=== PATIENT | female | born 1960 | race Caucasian/White ===

== ENCOUNTER 2019-06-13 17:08 | Observation (INO) ==
[2019-06-13 17:58] LABS: Hematocrit 34.7 % (36.0-48.0); Hemoglobin 11.6 g/dL (12.0-15.0); Mean Cell Volume 87.9 fL (80.0-100.0); Mean Corpuscular HGB Conc 33.3 g/dL (31.0-36.0); Mean Platelet Volume 8.7 fL (7.4-10.4); Platelet Count 311 K/mcL (140-440); RBC 3.95 M/mcL (4.00-5.20); Red Cell Distribution Width 14.6 % (11.5-14.5); WBC 6.5 K/mcL (4.5-11.0)
[2019-06-13 18:21] LABS: ALT/SGPT 22 U/l (0-40); AST/SGOT 22 U/l (0-37); Albumin 4.1 gm/dL (3.2-5.2); Alkaline Phosphatase 71 U/L (39-117); Bilirubin,Total 0.6 mg/dL (0.0-1.0); Blood Urea Nitrogen 19 mg/dl (6-20); Calcium 9.4 mg/dl (8.6-10.4); Carbon Dioxide 23 mmol/L (22-30); Chloride 95 mmol/L (96-108); Glomerular Filtration Rate 31; Glucose 149 mg/dL (70-105)
[2019-06-13 18:27] LABS: Eosinophils % (Manual) 1 % (0-7); Lymphocytes % 35 % (15-49); Monocytes % (Manual) 11 % (1-12); Platelet Estimate NORMAL (NORMAL); RBC Morphology NORMAL (NORMAL); Segmented Neutrophils % 53 % (38-78)
[2019-06-13] MEDS ORDERED: 0.9 % SODIUM CHLORIDE 1,000 ML IV ONE (19:21)
--- NOTE | 2019-06-13 19:39 | XRay Report ---
CLINICAL INFORMATION: Hypoxia COMPARISON: 05/31/2019 FINDINGS: Heart size, mediastinum and pulmonary vessels are normal. Lungs are clear. No effusions. IMPRESSION: Negative Interpreted and Authenticated by: Matthew Wang 06/13/19
--- NOTE | 2019-06-13 20:23 | Emergency Department Note ---
Weakness HPI - General Chief complaint: Weakness Stated complaint: Weakness, Nausea, Vomiting, Dizziness Time Seen by Provider: 06/13/19 17:25 Source: patient Mode of arrival: ambulatory Limitations: no limitations - History of Present Illness HPI Narrative: This 59-year-old female comes emergency room just not feeling normal with persisting weakness. She recently on 24 May was sent at [facility] with sepsis and EKG changes. She ended up with a myocardial infarction in the anteroseptal area and had 2 stents placed on the . She was sent home a number of days later on cefuroxime for her sepsis/pyelonephritis. On the she came back to this emergency room not quite feeling well and as if she had some persisting symptoms with weakness and nausea, etc. She was instructed to continue with her cefuroxime as the bacteria that grew out from the , E. coli, was sensitive to multiple antibiotics. Patient finished her antibiotic and several days later was seen in primary care or urgent care and was found to have a bladder infection for which she was treated with Bactrim. This began 6 days ago. She is here because she does not necessarily feel well with some nausea and vomiting including one episode yesterday 1 or 2 during the night and 2 times today. No diarrhea. She is felt dizzy for a couple of days as well as worsening weakness. She is felt cold all the time but no sweatiness. No fevers that she is aware of. Some general body achiness. REVIEW OF SYSTEMS: Denies runny nose, sore throat Denies chest pain Has a small little cough and some mild shortness of breath. Denies diarrhea. Denies dysuria presently. She did have some previously as well as did have some hesitancy and dribbling. She has had decreased urine output although she believes she has drank fairly normally. Has some back pain that she is not certain where it is coming from but it seems to have started in this last 1 week and wondering if it could be from her kidneys/UTI. No rashes. Headache yesterday. Some lightheaded and dizziness yesterday and some today. Has some chronic anxiety for which she is on medication I believe. Denies depression. - Related Data Home Medications Medication Instructions Recorded Confirmed Aripiprazole [Abilify] 5 mg PO DAILY 05/24/19 06/14/19 Escitalopram [Lexapro] 20 mg PO DAILY 05/24/19 06/14/19 Hydrochlorothiazide [Oretic] 25 mg PO DAILY 05/24/19 06/14/19 Metoprolol Succinate [Toprol Xl] 100 mg PO DAILY 05/24/19 06/14/19 Rosuvastatin [Crestor] 5 mg PO DAILY 05/24/19 06/14/19 metFORMIN HCL [Metformin HCl] 1,000 mg PO BIDCC 05/24/19 06/14/19 aspirin 81 mg tablet,delayed 81 mg PO QDAY 06/13/19 06/14/19 release atorvastatin 40 mg tablet 40 mg PO QHS #30 tab 06/13/19 06/14/19 lisinopril 5 mg tablet 5 mg PO QHS #30 tab 06/13/19 06/14/19 ondansetron 4 mg disintegrating 4 mg PO Q4-6HP PRN 06/13/19 06/14/19 tablet ticagrelor 90 mg tablet 90 mg PO BID 06/13/19 06/14/19 Allergies Allergy/AdvReac Type Severity Reaction Status Date / Time Penicillins Allergy Intermediate Rash Verified 06/13/19 16:40 Past Medical History - Past Medical History [facility] Narrative: Medical History (Last Updated 06/13/19 @ 20:42 by Jony Viramontes DO) Diabetes mellitus type 2, uncontrolled, with complications (Chronic) History of myocardial infarction (Chronic) Elevated LFTs (Resolved) Sepsis (Resolved) Pyelonephritis (Resolved) Chest pain (Resolved) Hypokalemia (Resolved) Pancreatitis (Resolved) Past Surgical History (Last Updated 06/13/19 @ 20:43 by Jony Viramontes DO) History of (Acute) History of D&C (Acute) History of foot surgery (Acute) History of knee surgery (Acute) History of shoulder surgery (Acute) Medical history: Reports: CAD (coronary artery disease), DM, hyperlipidemia, hypertension, thyroid disease. Denies: cancer, CVA, myocardial infarction, seizures, TIA Psychiatric history: Reports: anxiety Surgical history ED: Reports: angioplasty/stent - Social History smoking status: Never smoker Alcohol use: Reports: None Physical Exam Limitations: no limitations General appearance: alert, in no apparent distress, malaise Head: atraumatic, normocephalic Eye: Present: normal appearance, PERRL, EOMI. Absent: scleral icterus, conjunctival injection ENT: Present: normal oropharynx, mucous membranes moist Neck: Present: trachea midline. Absent: lymphadenopathy, thyromegaly Chest: Present: symmetric chest wall rise Respiratory: Present: normal lung sounds bilaterally. Absent: respiratory distress, wheezes, stridor, accessory muscle use, prolonged expiratory phase Cardiovascular: Present: regular rate, normal rhythm. Absent: systolic murmur, diastolic murmur Abdominal: Present: soft. Absent: distention, tenderness, guarding, rebound, rigidity, organomegaly, mass Extremities: Absent: pedal edema, pretibial edema, calf tenderness Back: Absent: CVA tenderness (R), CVA tenderness (L) Neurological: Present: alert, oriented X3 Psychiatric: Present: normal affect, normal mood, serious. Absent: poor eye contact Skin: Present: warm, dry Course Vital Signs Temperature 98.1 F 06/13/19 17:08 Pulse Rate 80 06/13/19 17:08 Respiratory Rate 18 06/13/19 17:08 Blood Pressure 99/62 06/13/19 17:08 Pulse Oximetry (%) 97 06/13/19 17:08 Temperature 98.8 F 06/14/19 00:06 Pulse Rate 84 06/14/19 00:06 Respiratory Rate 14 06/14/19 00:06 Blood Pressure 113/72 06/14/19 00:06 Pulse Oximetry (%) 98 06/14/19 00:06 Weakness - MDM Narrative Medical decision making narrative: 5:53 PM -- low blood pressure in spite of metoprolol change from 200 down to 100 mg/day 6 days ago. Possibly caused by nausea and vomiting times third day today. Associated with some dizziness. Recent sepsis and myocardial infarction. Multiple labs to be done including cardiac and lactic acid. Initial EKG suggests atrial flutter. Rate around 80. 6:45 PM approximately -- appears to be sinus rhythm on the monitor. Repeat EKG demonstrates sinus rhythm. More in-depth comparison between the 2 reveals that the original EKG was actually sinus not 41 AV block atrial flutter. Labs revealed creatinine of 1.8. UA still pending. 7:19 PM - saturations sometimes dipping to 87%. Will get 2 view x-ray of the chest and procalcitonin. CT scan of the abdomen was negative for stones. The inflammatory reaction around 1 of her kidneys has resolved. A bladder scan demonstrates around 100 cc of fluid. 9 PM approximately -- I spoke with Dr. Cervantes, hospitalist, with consideration of seeking out what her creatinine was after her heart cath and at discharge. Also a bladder scan. Consider discussing with nephrology if this could be a part of a contrast-induced nephropathy. CT scan was recommended requested but had already been done as above. 10:20 PM -- creatinine on the (while at [facility]) was 1.1. 10:30 PM approximately -- saturations on review seem to indicate that she is not hypoxic and ambulates easily and well on room air with normal saturations. Previous lipase had been elevated at 245 on 24 May. Today is 99. Procalcitonin is also unremarkable as is the chest x-ray. 11:35 PM -- after second liter of fluid patient feels quite a bit better but still felt dizzy on the way back from the bathroom. I had spoken with Dr. Cervantes a few minutes ago with agreement for patient to be admitted to observation under his hospital service because of her creatinine of 1.8 and the hypotension that she had exhibited. Patient indicates that her nausea and vomiting seems to have improved quite significantly. She is now attempting to drink some additional fluids. - Lab Data Lab results reviewed: Yes I reviewed the patient's lab results. Result diagrams: 06/13/19 17:34 06/13/19 17:34 Lab Results 06/13/19 06/13/19 06/13/19 Range/Units 17:34 17:34 17:34 WBC 6.5 (4.5-11.0) K/mcL RBC 3.95 L (4.00-5.20) M/mcL Hgb 11.6 L (12.0-15.0) g/dL Hct 34.7 L (36.0-48.0) % MCV 87.9 (80.0-100.0) fL MCH 29.2 (26.0-34.0) pg MCHC 33.3 (31.0-36.0) g/dL RDW 14.6 H (11.5-14.5) % Plt Count 311 (140-440) K/mcL MPV 8.7 (7.4-10.4) fL Total Counted 100 Seg Neutrophils % 53 (38-78) % Band Neutrophils % Not Reportable Lymphocytes % 35 (15-49) % Monocytes % (Manual) 11 (1-12) % Eosinophils % (Manual) 1 (0-7) % Platelet Estimate Normal (NORMAL) RBC Morphology Normal (NORMAL) VBG Lactic Acid 1.6 (0.5-2.0) mmol/L Sodium 136 (133-145) mmol/L Potassium 4.1 (3.3-5.1) mmol/L Chloride 95 L (96-108) mmol/L Carbon Dioxide 23 (22-30) mmol/L Anion Gap 18.0 H (8-16) BUN 19 (6-20) mg/dl Creatinine 1.8 H (0.6-1.1) mg/dl GFR Calculation 31 Glucose 149 H (70-105) mg/dL Calcium 9.4 (8.6-10.4) mg/dl Total Bilirubin 0.6 (0.0-1.0) mg/dL AST 22 (0-37) U/l ALT 22 (0-40) U/l Alkaline Phosphatase 71 (39-117) U/L Troponin T (0-0.03) ng/ml Total Protein 8.1 (5.9-8.4) gm/dL Albumin 4.1 (3.2-5.2) gm/dL Globulin 4.0 H (2.2-3.7) gm/dL Albumin/Globulin Ratio 1.0 (1.0-2.3) Lipase (7-60) U/L Procalcitonin (<0.10) ng/mL Urine Color Urine Appearance Urine pH (5.0-9.0) Ur Specific [place] (1.000-1.035) Urine Protein (NEG) mg/dL Urine Glucose (UA) (NEG) mg/dL Urine Ketones (NEG) mg/dL Urine Occult Blood (<0.03) mg/dL Urine Nitrate (NEG) Urine Bilirubin (NEG) mg/dL Urine Urobilinogen (NEG) mg/dL Ur Leukocyte Esterase (NEG) /uL Urine RBC (0-1) /hpf Urine WBC (0-4) /hpf Ur Squamous Epith Cells (0-4) /hpf Urine Bacteria (0) /hpf Hyaline Casts (0-2) /lpf Urine Mucus (0) /hpf Ur Culture Indicated? 0906/13/19 06/13/19 Range/Units 17:34 17:34 17:34 WBC (4.5-11.0) K/mcL RBC (4.00-5.20) M/mcL Hgb (12.0-15.0) g/dL Hct (36.0-48.0) % MCV (80.0-100.0) fL MCH (26.0-34.0) pg MCHC (31.0-36.0) g/dL RDW (11.5-14.5) % Plt Count (140-440) K/mcL MPV (7.4-10.4) fL Total Counted Seg Neutrophils % (38-78) % Band Neutrophils % Lymphocytes % (15-49) % Monocytes % (Manual) (1-12) % Eosinophils % (Manual) (0-7) % Platelet Estimate (NORMAL) RBC Morphology (NORMAL) VBG Lactic Acid (0.5-2.0) mmol/L Sodium (133-145) mmol/L Potassium (3.3-5.1) mmol/L Chloride (96-108) mmol/L Carbon Dioxide (22-30) mmol/L Anion Gap (8-16) BUN (6-20) mg/dl Creatinine (0.6-1.1) mg/dl GFR Calculation Glucose (70-105) mg/dL Calcium (8.6-10.4) mg/dl Total Bilirubin (0.0-1.0) mg/dL AST (0-37) U/l ALT (0-40) U/l Alkaline Phosphatase (39-117) U/L Troponin T < 0.01 (0-0.03) ng/ml Total Protein (5.9-8.4) gm/dL Albumin (3.2-5.2) gm/dL Globulin (2.2-3.7) gm/dL Albumin/Globulin Ratio (1.0-2.3) Lipase 99 H (7-60) U/L Procalcitonin < 0.10 (<0.10) ng/mL Urine Color Urine Appearance Urine pH (5.0-9.0) Ur Specific [place] (1.000-1.035) Urine Protein (NEG) mg/dL Urine Glucose (UA) (NEG) mg/dL Urine Ketones (NEG) mg/dL Urine Occult Blood (<0.03) mg/dL Urine Nitrate (NEG) Urine Bilirubin (NEG) mg/dL Urine Urobilinogen (NEG) mg/dL Ur Leukocyte Esterase (NEG) /uL Urine RBC (0-1) /hpf Urine WBC (0-4) /hpf Ur Squamous Epith Cells (0-4) /hpf Urine Bacteria (0) /hpf Hyaline Casts (0-2) /lpf Urine Mucus (0) /hpf Ur Culture Indicated? 06/13/19 Range/Units 20:59 WBC (4.5-11.0) K/mcL RBC (4.00-5.20) M/mcL Hgb (12.0-15.0) g/dL Hct (36.0-48.0) % MCV (80.0-100.0) fL MCH (26.0-34.0) pg MCHC (31.0-36.0) g/dL RDW (11.5-14.5) % Plt Count (140-440) K/mcL MPV (7.4-10.4) fL Total Counted Seg Neutrophils % (38-78) % Band Neutrophils % Lymphocytes % (15-49) % Monocytes % (Manual) (1-12) % Eosinophils % (Manual) (0-7) % Platelet Estimate (NORMAL) RBC Morphology (NORMAL) VBG Lactic Acid (0.5-2.0) mmol/L Sodium (133-145) mmol/L Potassium (3.3-5.1) mmol/L Chloride (96-108) mmol/L Carbon Dioxide (22-30) mmol/L Anion Gap (8-16) BUN (6-20) mg/dl Creatinine (0.6-1.1) mg/dl GFR Calculation Glucose (70-105) mg/dL Calcium (8.6-10.4) mg/dl Total Bilirubin (0.0-1.0) mg/dL AST (0-37) U/l ALT (0-40) U/l Alkaline Phosphatase (39-117) U/L Troponin T (0-0.03) ng/ml Total Protein (5.9-8.4) gm/dL Albumin (3.2-5.2) gm/dL Globulin (2.2-3.7) gm/dL Albumin/Globulin Ratio (1.0-2.3) Lipase (7-60) U/L Procalcitonin (<0.10) ng/mL Urine Color Yellow Urine Appearance Clear Urine pH 5.0 (5.0-9.0) Ur Specific [place] 1.012 (1.000-1.035) Urine Protein Neg (NEG) mg/dL Urine Glucose (UA) Negative (NEG) mg/dL Urine Ketones Neg (NEG) mg/dL Urine Occult Blood Neg (<0.03) mg/dL Urine Nitrate Neg (NEG) Urine Bilirubin Neg (NEG) mg/dL Urine Urobilinogen Neg (NEG) mg/dL Ur Leukocyte Esterase 25 A (NEG) /uL Urine RBC < 1 (0-1) /hpf Urine WBC 19 H (0-4) /hpf Ur Squamous Epith Cells < 1 (0-4) /hpf Urine Bacteria 0 (0) /hpf Hyaline Casts 17 H (0-2) /lpf Urine Mucus Few (0) /hpf Ur Culture Indicated? Yes - Radiology Data Radiology results reviewed: Yes I reviewed the patient's radiology results. - EKG Data EKG attestation: Yes There are no EKG findings of acute coronary syndrome, Yes This EKG will be read by chief sales officer EKG results narrative: Initial EKG demonstrates anteroseptal infarct with inverted T waves in the anterior leads but no ST depression or elevation. She was thought to be in atrial flutter with a 4:1 AV block and an incomplete right bundle branch block; closer look at her EKG questions this finding. Within a few minutes sinus rhythm and this was captured on a follow-up EKG. Disposition Pt seen by HYSTER DRIVER/PA only: No Clinical Impression: Hypoxia, Atrial flutter, paroxysmal ARF (acute renal failure) Qualifiers: Acute renal failure type: unspecified Qualified Code(s): N17.9 - Acute kidney failure, unspecified Hypotension Qualifiers: Hypotension type: hypotension due to drug Qualified Code(s): I95.2 - Hypotension due to drugs UTI (urinary tract infection) Qualifiers: Urinary tract infection type: site unspecified Hematuria presence: without hematuria Qualified Code(s): N39.0 - Urinary tract infection, site not specified Disposition: Xfer As Outpt/Obs ([facility]) Condition: Fair
[2019-06-13 22:36] LABS: Appearance,Urine CLEAR; Bacteria,Urine 0 /hpf (0); Bilirubin,Urine NEG (NEG); Color,Urine YELLOW; Culture Indicated,Urine YES; Glucose,Urine (UA) NEGATIVE (NEG); Ketones,Urine NEG (NEG); Leukocyte Esterase,Urine 25 /uL (NEG); Mucus,Urine FEW /hpf (0); Nitrate,Urine NEG (NEG); Protein,Urine NEG (NEG); Specific Gravity,Urine 1.012 (1.000-1.035); Urine Blood NEG mg/dL (<0.03); Urine Hyaline Cast 17 /lpf (0-2); Urine RBC < 1 /hpf (0-1); Urine Squamous Epithelial Cell < 1 /hpf (0-4); Urine WBC 19 /hpf (0-4); Urobilinogen,Urine NEG (NEG)
--- NOTE | 2019-06-13 23:25 | Internal Med History&Physical ---
Medical - H&P: HPI Patient information: Note initiated : 06/13/19 at 11:24 pm Service Date, if different from initiated Date: [] Patient: Harriet English a 59 y/o F admitted on for Weakness, Nausea, Vomiting, Dizziness. Chief Complaint: [] Chief complaint: + History of present illness: Ms. English is a 59 year old F with a history of diabetes/coronary artery disease status post stenting 2 weeks ago at [facility]. Patient has been diagnosed with pyelonephritis and was under treatment on antibiotics. She was treated for sepsis and had a 5-day hospitalization at [facility] 2 weeks ago. Post discharge she was continued on antibiotics but has had developed progressive fatigue malaise nausea and never really felt good. Over the last couple of days she has gotten increasingly dizzy lightheaded, loss of appetite but denies fever shaking chills, dysuria, bloody urine or stool. She further denies chest pain/shortness of breath. She subsequently presents to the ER for evaluation. Initial work-up was consistent with hypotension/creatinine 1.8. Her last known creatinine was 1.1 on the day of discharge from [facility] around mid May. At the time of evaluation patient is alert and oriented. She denies active distress but feels fatigued lethargic. She denies vertigo but endorses some lightheadedness while ambulating. She denies changes in medication except for metoprolol and ticagrelor that was started post coronary stenting. Review of systems 10 point review of system was performed and is negativ except as above Medical - H&P: PMH Medical history: Diabetes mellitus type 2, uncontrolled, with complications (Chronic) History of myocardial infarction (Chronic) Elevated LFTs (Resolved) Sepsis (Resolved) Pyelonephritis (Resolved) Chest pain (Resolved) Hypokalemia (Resolved) Pancreatitis (Resolved) CAD status post stenting May 2019 Pyelonephritis May 2019 Past Surgical History History of (Acute) History of D&C (Acute) History of foot surgery (Acute) History of knee surgery (Acute) History of shoulder surgery (Acute) Coronary stenting 2018 Psychiatric history: Reports: anxiety Surgical history ED: Reports: angioplasty/stent - Social History smoking status: Never smoker Alcohol use: Reports: None Medical - H&P: Meds Home Medications Medication Instructions Recorded Confirmed Type Aripiprazole [Abilify] 5 mg PO DAILY 05/24/19 06/14/19 History Escitalopram [Lexapro] 20 mg PO DAILY 05/24/19 06/14/19 History Hydrochlorothiazide [Oretic] 25 mg PO DAILY 05/24/19 06/14/19 History Metoprolol Succinate [Toprol Xl] 100 mg PO DAILY 05/24/19 06/14/19 History Rosuvastatin [Crestor] 5 mg PO DAILY 05/24/19 06/14/19 History metFORMIN HCL [Metformin HCl] 1,000 mg PO BIDCC 05/24/19 06/14/19 History aspirin 81 mg tablet,delayed 81 mg PO QDAY 06/13/19 06/14/19 History release atorvastatin 40 mg tablet 40 mg PO QHS #30 tab 06/13/19 06/14/19 History lisinopril 5 mg tablet 5 mg PO QHS #30 tab 06/13/19 06/14/19 History ondansetron 4 mg disintegrating 4 mg PO Q4-6HP PRN 06/13/19 06/14/19 History tablet ticagrelor 90 mg tablet 90 mg PO BID 06/13/19 06/14/19 History Allergies Allergy/AdvReac Type Severity Reaction Status Date / Time Penicillins Allergy Intermediate Rash Verified 06/13/19 16:40 Medical - H&P: Exam - Constitutional Vitals: Temp Pulse Resp BP Pulse Ox 98.1 F 82 25 H 124/66 93 06/13/19 17:08 06/13/19 22:36 06/13/19 22:36 06/13/19 22:31 06/13/19 22:36 General appearance: average body habitus, no acute distress Exam: Alert and oriented Eye movement symmetrical Head normocephalic Oral cavity dry no ear nose discharge Neck no lymphadenopathy S1-S2 regular rhythm no murmur Diminished breath sounds bases Abdomen soft nontender Lower extremity no cyanosis clubbing no joint swelling Skin no suspicious lesion Psych alert cooperative Neuro nonfocal Medical - H&P: Reslt - Labs CBC & Chem 7: 06/14/19 04:06 06/14/19 04:06 Labs: Short CBC 06/13/19 Range/Units 17:34 WBC 6.5 (4.5-11.0) K/mcL Hgb 11.6 L (12.0-15.0) g/dL Hct 34.7 L (36.0-48.0) % Plt Count 311 (140-440) K/mcL BMP 06/13/19 17:34 Sodium 136 Potassium 4.1 Chloride 95 L Carbon Dioxide 23 BUN 19 Creatinine 1.8 H Glucose 149 H Calcium 9.4 Cardiac Enzymes 06/13/19 Range/Units 17:34 Troponin T < 0.01 (0-0.03) ng/ml Liver Function 06/13/19 Range/Units 17:34 Total Bilirubin 0.6 (0.0-1.0) mg/dL AST 22 (0-37) U/l ALT 22 (0-40) U/l Alkaline Phosphatase 71 (39-117) U/L Albumin 4.1 (3.2-5.2) gm/dL Urine 06/13/19 Range/Units 20:59 Urine Color Yellow Urine Appearance Clear Urine pH 5.0 (5.0-9.0) Ur Specific [place] 1.012 (1.000-1.035) Urine Protein Neg (NEG) mg/dL Urine Glucose (UA) Negative (NEG) mg/dL Medical - H&P: A/P (1) ARF (acute renal failure) Current visit: Yes Status: Acute * Acute kidney injury-possibly from volume depletion and recent contrast exposure. Creatinine 1.8, baseline creatinine 1.8. Continue crystalloid/renal function monitoring. If deteriorating consult nephrology. * Nausea vomiting unclear etiology. Likely acute gastritis. Negative CT ab domen. Continue conservative management with antiemetics/crystalloids, GI consult/upper endoscopy if persistent symptoms. * CAD status post stenting continue ticagrelor/statin/aspirin/JAMES inhibitor/me toprolol * Anxiety disorder continue Lexapro * Hypertension continue JAMES inhibitor/thiazide/beta-darrel * Full code * Prophylaxis heparin Plan * Monitor renal function * Crystalloids * Conservative management * Prior medical condition management home meds * Observation admission
[2019-06-13] MEDS ORDERED: ASPIRIN 81 MG TAB.CHEW CHEWED ONE (23:32)
[2019-06-14] MEDS ORDERED: POLYETHYLENE GLYCOL 3350 17 GM PACKET PO PRN (00:06)
[2019-06-14] MEDS ORDERED: MAGNESIUM SULFATE 2 GM/50 ML BAG IV PRN (00:06)
[2019-06-14] MEDS ORDERED: PROMETHAZINE 25 MG/ML VIAL IV PRN (00:06)
[2019-06-14] MEDS ORDERED: POTASSIUM CHLORIDE 20 MEQ PACKET PO PRN (00:06)
[2019-06-14] MEDS ORDERED: MELATONIN 3 MG TABLET PO PRN (00:06)
[2019-06-14] MEDS ORDERED: ONDANSETRON 4 MG/2 ML VIAL IV PRN (00:06)
[2019-06-14] MEDS: LACTATED RINGERS 1,000 ML IV SCH ×3 (00:25→20:29)
[2019-06-14] MEDS ORDERED: ONDANSETRON 4 MG/2 ML VIAL ONE (04:35)
--- NOTE | 2019-06-14 06:45 | Cat Scan Report ---
CLINICAL INFORMATION: Urinary tract infection and abdominal pain COMPARISON: Contrast enhanced abdomen and pelvic CT over two weeks prior 05/24/2018 TECHNIQUE: IV and oral contrast were withheld per standard protocol. .625mm helical slices were obtained from the diaphragm through the subtrochanteric regions. Following reconstruction, 2.5 mm sagittal, coronal, and axial reformations were processed. Exam was reviewed in bone, soft tissue, and lung windows/algorithm. The exam was performed using radiation dose optimization techniques including, but not limited to, automated exposure control, adjustment of the mA and/or kV according to patient size and use of iterative reconstruction technique. FINDINGS: Lung bases show no abnormality - no effusion. The visualized heart is unremarkable. Abdominal images show mild fatty changes within the liver. A 3 cm low-attenuation lesion within the caudate lobe likely represents a region of focal fat sparing. Increased attenuation in the gallbladder noted which likely represents IV contrast excretion from prior CT. Common bile duct is normal caliber: 5 mm. Since previous study, the edema surrounding the right kidney has cleared. Both noncontrasted kidneys are normal in size configuration and attenuation without focal lesion. The upper collecting systems, ureters and urinary bladder are normal. Both adrenal glands, spleen, pancreas and aorta are normal. Pelvic images show uterus to be anteflexed and normal in size 7.5 x 4 cm. A 19 mm subserosal fibroid Raymundo's from the left uterine cornea. Both ovaries are normal. The stomach, small and large bowel are unremarkable. Bone windows show no osseous abnormality IMPRESSION: 1. Both noncontrasted kidneys upper collecting systems and ureters and urinary bladder appear normal. Perinephric inflammation or edema surrounding the right kidney has resolved since the CT two weeks ago. 2. 19 mm subserosal fibroid left uterine cornua - stable 3. 3 cm low-attenuation lesion within the caudate lobe of the fatty liver likely represents focal fat sparing or a cyst. Suggest ultrasound to confirm Interpreted and Authenticated by: Matthew Wang 06/14/19
[2019-06-14 06:55] LABS: Hematocrit 31.2 % (36.0-48.0); Hemoglobin 10.4 g/dL (12.0-15.0); Mean Cell Volume 88.6 fL (80.0-100.0); Mean Corpuscular HGB Conc 33.3 g/dL (31.0-36.0); Mean Platelet Volume 9.1 fL (7.4-10.4); Platelet Count 243 K/mcL (140-440); RBC 3.52 M/mcL (4.00-5.20); Red Cell Distribution Width 14.6 % (11.5-14.5); WBC 6.5 K/mcL (4.5-11.0)
[2019-06-14 07:06] LABS: ALT/SGPT 19 U/l (0-40); AST/SGOT 23 U/l (0-37); Albumin 3.3 gm/dL (3.2-5.2); Albumin/Globulin Ratio 0.9 (1.0-2.3); Alkaline Phosphatase 64 U/L (39-117); Bilirubin,Direct < 0.2 mg/dL (0.0-0.3); Bilirubin,Total 0.5 mg/dL (0.0-1.0); Blood Urea Nitrogen 15 mg/dl (6-20); Calcium 8.9 mg/dl (8.6-10.4); Carbon Dioxide 27 mmol/L (22-30); Chloride 98 mmol/L (96-108); Globulin 3.7 gm/dL (2.2-3.7); Glomerular Filtration Rate 35; Glucose 182 mg/dL (70-105); Lactate Dehydrogenase 206 U/L (94-250); Phosphorous 3.1 mg/dL (2.7-4.5); Triglycerides 202 mg/dl (<150); Uric Acid 5.8 mg/dL (2.5-8.0)
[2019-06-14] MEDS: 0.9 % SODIUM CHLORIDE 10 ML SYRINGE IV SCH ×3 (07:16→20:32)
[2019-06-14] MEDS ORDERED: ONDANSETRON 4 MG ODT TABLET PO PRN (07:57)
--- NOTE | 2019-06-14 08:08 | Internal Med Progress Note ---
Medical - PN: Subj Patient information: Note initiated : 06/14/19 at 8:05 am Service Date, if different from initiated Date: [] Patient: Harriet English a 59 y/o F admitted on 06/13/19 for Weakness, Nausea, Vomiting, Dizziness. Chief Complaint: [] Interval history: Ms. English is a 59 year old F with a history of diabetes/coronary artery disease status post stenting 2 weeks ago at [facility]. Patient has been diagnosed with pyelonephritis and was under treatment on antibiotics. She was treated for sepsis and had a 5-day hospitalization at [facility] 2 weeks ago. Post discharge she was continued on antibiotics but has had developed progressive fatigue malaise nausea and never really felt good. Over the last couple of days she has gotten increasingly dizzy lightheaded, loss of appetite but denies fever shaking chills, dysuria, bloody urine or stool. She further denies chest pain/shortness of breath. She subsequently presents to the ER for evaluation. Initial work-up was consistent with hypotension/creatinine 1.8. Her last known creatinine was 1.1 on the day of discharge from [facility] around mid May. CT abdomen essentially unremarkable, with resolution of pyelonephritis findings from previo us CT. EKG sinus rhythm At the time of evaluation patient is alert and oriented. She denies active distress but feels fatigued lethargic. She denies vertigo but endorses some lightheadedness while ambulating. She denies changes in medication except for metoprolol and ticagrelor that was started post coronary stenting. 06/14-patient doing well. No overnight events. Denies lightheadedness but has not attempted getting out of bed. Restart home medications. Blood pressure is stable. Downtrending now 1.6. No overnight diarrhea or abdominal pain or fever chills. No concerns expressed by nursing staff. Start diet. - Constitutional Vitals: Vital Signs Temp Pulse Resp BP Pulse Ox 98.2 F 76 16 116/66 95 06/14/19 04:13 06/14/19 04:13 06/14/19 04:13 06/14/19 04:13 06/14/19 04:13 Period Temp Pulse Resp BP Sys/Merrill Pulse Ox Last 24 Hr 98.1 F-98.8 F 76-84 14-28 99-135/60-75 89-100 Intake and Output 06/13/19 06/14/19 06/14/19 21:59 05:59 13:59 Intake Total 1000 225 Output Total 350 Balance 1000 -125 Weight 213 lb 218 lb Intake & Output: Intake & Output 06/13/19 06/14/19 06/14/19 21:59 05:59 13:59 Intake Total 1000 225 Output Total 350 Balance 1000 -125 Weight 213 lb 218 lb Intake: IV 1000 Sodium Chloride 0.9% 1,000 ml @ 1000 Wide Open IV BOLUS ONE Rx#: [id number] Oral 225 Output: Void Amount 350 Other: Meal Snack Percent of Meal Consumed 100% Urine Color Bright Yellow General appearance: no acute distress Exam: Alert oriented Mild anxiety nonlabored breathing S1-S2 regular rhythm Nondistended abdomen Medical - PN: Obj Da - Labs CBC & Chem 7: 06/14/19 04:06 06/14/19 04:06 Labs: Abnormal Lab Results 06/14/19 06/14/19 06/13/19 04:06 04:06 20:59 RBC 3.52 L Hgb 10.4 L Hct 31.2 L RDW 14.6 H Chloride Anion Gap Creatinine 1.6 H Glucose 182 H Globulin Albumin/Globulin Ratio 0.9 L Triglycerides 202 H Lipase Ur Leukocyte Esterase 25 A Urine WBC 19 H Hyaline Casts 17 H 06/13/19 06/13/19 06/13/19 17:34 17:34 17:34 RBC 3.95 L Hgb 11.6 L Hct 34.7 L RDW 14.6 H Chloride 95 L Anion Gap 18.0 H Creatinine 1.8 H Glucose 149 H Globulin 4.0 H Albumin/Globulin Ratio Triglycerides Lipase 99 H Ur Leukocyte Esterase Urine WBC Hyaline Casts Meds: Medications Acetaminophen (Tylenol) 650 mg PO Q4-6HP PRN PRN Reason: PAIN/FEVER > 101 Aspirin (Aspirin) 81 mg PO QDAY [facility] Atorvastatin Calcium (Lipitor) 40 mg PO QHS [facility] Cyanocobalamin (Vitamin B-12) 1,000 mcg PO BID JEAN Stop: 06/18/19 21:01 Escitalopram Oxalate (Lexapro) 20 mg PO DAILY [facility] Folic Acid (Folic Acid) 1 mg PO DAILY [facility] Heparin Sodium (Porcine) (Heparin) 5,000 unit SQ Q12 [facility] Hydrochlorothiazide (Oretic) 25 mg PO DAILY [facility] Lactated Ringer's (Lactated Ringers) 1,000 mls @ 100 mls/hr IV .Q10H JEAN Stop: 06/15/19 06:05 Last Admin: 06/14/19 00:25 Dose: 100 mls/hr Documented by: Magnesium Sulfate (Magnesium Sulfate) 2 gm in 50 mls @ 50 mls/hr IV UD PRN PRN Reason: MG = or < 1.7 Iron Carb/Multivit/Roll Edge Stitcher Hand/Folic Acid (Multivitamin W/Minerals) 1 tab PO DAILY [facility] Lisinopril (Zestril) 5 mg PO QHS [facility] Melatonin (Melatonin 3mg Tablet) 3 mg PO HSP PRN PRN Reason: Insomnia Metformin HCl (Glucophage) 1,000 mg PO BIDCC [facility] Metoprolol Succinate (Toprol Xl) 100 mg PO DAILY [facility] Non-Formulary Medication (Aripiprazole) 5 mg PO DAILY [facility] Non-Formulary Medication (Ticagrelor [Brilinta]) 90 mg PO BID [facility] Ondansetron HCl (Zofran) 4 mg IV Q4-6HP PRN PRN Reason: Nausea And Vomiting Last Admin: 06/14/19 04:35 Dose: 4 mg Documented by: Ondansetron HCl (Zofran Odt) 4 mg PO Q4-6HP PRN PRN Reason: Nausea Polyethylene Glycol (Miralax) 17 gm PO DAILYP PRN PRN Reason: Constipation Potassium Chloride (Klor-Con) 40 meq PO DAILYP PRN PRN Reason: K+ < 3.5 Promethazine HCl (Phenergan) 6.25 mg IV Q4-6HP PRN PRN Reason: Nausea And Vomiting Rosuvastatin Calcium (Crestor) 5 mg PO DAILY [facility] Sodium Chloride (Saline Flush) 10 ml IV Q8 [facility] Last Admin: 06/14/19 07:16 Dose: Not Given Documented by: Medical - PN: A/P - Time Spent With Patient Total time spent is greater than 50% in coordination of care (as documented) at patient's floor/unit and/or counseling patient: 15 - 24 minutes (1) ARF (acute renal failure) Status: Acute Assessment and plan: * Acute kidney injury-possibly from volume depletion and recent contrast exposure. Creatinine improved to 1.6. . Baseline creatinine 0.8. Continue crystalloid/renal function monitoring. * Nausea vomiting unclear etiology. Likely acute gastritis. Negative CT abdomen. Continue conservative management with antiemetics/crystalloids * CAD status post stenting continue ticagrelor/statin/aspirin/JAMES inhibitor/metoprolol * Anxiety disorder continue Lexapro * Hypertension stable on JAMES inhibitor/thiazide/beta-darrel * Full code * Prophylaxis heparin Plan * Continue monitoring renal function * Crystalloids * GI consult if persistent symptoms * Prior medical condition management home meds Current Visit: Yes Medical - PN: Qual - VTE Deep Vein Thrombosis/Pulmonary Embolism Present on Admission: No
[2019-06-14] MEDS: ESCITALOPRAM 20 MG TABLET PO SCH (08:53)
[2019-06-14] MEDS: HYDROCHLOROTHIAZIDE 25 MG TABLET PO SCH (08:53)
[2019-06-14] MEDS: METOPROLOL SUCCINATE 50 MG TAB.XL.24H PO SCH (08:53)
[2019-06-14] MEDS: CYANOCOBALAMIN (VITAMIN B-12) 500 MCG TABLET PO SCH ×2 (08:53→20:32)
[2019-06-14] MEDS: ARIPIPRAZOLE 5 MG TABLET PO SCH (08:53)
[2019-06-14] MEDS: ASPIRIN 81 MG TAB.CHEW PO SCH (08:53)
[2019-06-14] MEDS: MULTIVIT,THER IRON,CA,FA & MIN 1 TABLET PO SCH (08:53)
[2019-06-14] MEDS: metFORMIN 500 MG TABLET PO SCH ×2 (08:53→17:33)
[2019-06-14] MEDS: FOLIC ACID 1 MG TABLET PO SCH (08:54)
[2019-06-14] MEDS ORDERED: ASPIRIN 81 MG TAB.CHEW CHEWED SCH (09:00)
[2019-06-14] MEDS ORDERED: ROSUVASTATIN 10 MG TABLET PO SCH (09:00)
[2019-06-14 09:13] LABS: Band Neutrophils % 1 % (0-10); Eosinophils % (Manual) 1 % (0-7); Hypochromasia OCC (NONE SEEN); Lymphocytes % 25 % (15-49); Monocytes % (Manual) 10 % (1-12); Platelet Estimate NORMAL (NORMAL); Polychromasia FEW (NONE SEEN); RBC Morphology ABNORM (NORMAL); Segmented Neutrophils % 63 % (38-78)
[2019-06-14] MEDS: HEPARIN 5,000 UNIT/ML VIAL SQ SCH ×2 (09:41→20:31)
[2019-06-14] MEDS: TICAGRELOR 90 MG PO SCH ×2 (09:41→20:33)
[2019-06-14] MEDS ORDERED: DEXTROSE 50% 50 ML VIAL IV PRN (15:11)
[2019-06-14] MEDS ORDERED: DEXTROSE 31 GM ORAL.SUSP PO PRN (15:11)
[2019-06-14] MEDS: ACETAMINOPHEN 325 MG TABLET PO PRN (15:54)
[2019-06-14] MEDS: INSULIN LISPRO 1 UNIT/0.01 ML UNIT SQ SCH ×2 (17:33→20:32)
[2019-06-14] MEDS ORDERED: LISINOPRIL 5 MG TABLET PO SCH (21:00)
[2019-06-14] MEDS ORDERED: ATORVASTATIN 20 MG TABLET PO SCH (21:00)
[2019-06-15] MEDS: 0.9 % SODIUM CHLORIDE 10 ML SYRINGE IV SCH (04:13)
[2019-06-15 05:20] LABS: Hemoglobin 10.5 g/dL (12.0-15.0); Mean Cell Volume 88.9 fL (80.0-100.0); Mean Corpuscular HGB Conc 33.8 g/dL (31.0-36.0); Mean Platelet Volume 8.8 fL (7.4-10.4); Platelet Count 250 K/mcL (140-440); RBC 3.48 M/mcL (4.00-5.20); Red Cell Distribution Width 14.4 % (11.5-14.5); WBC 5.7 K/mcL (4.5-11.0)
[2019-06-15 05:42] LABS: ALT/SGPT 17 U/l (0-40); AST/SGOT 15 U/l (0-37); Albumin 3.4 gm/dL (3.2-5.2); Albumin/Globulin Ratio 0.9 (1.0-2.3); Alkaline Phosphatase 64 U/L (39-117); Bilirubin,Direct < 0.2 mg/dL (0.0-0.3); Bilirubin,Total 0.6 mg/dL (0.0-1.0); Blood Urea Nitrogen 10 mg/dl (6-20); Calcium 9.5 mg/dl (8.6-10.4); Carbon Dioxide 27 mmol/L (22-30); Chloride 98 mmol/L (96-108); Globulin 3.6 gm/dL (2.2-3.7); Glomerular Filtration Rate 62; Glucose 205 mg/dL (70-105); Lactate Dehydrogenase 178 U/L (94-250); Phosphorous 3.4 mg/dL (2.7-4.5); Triglycerides 193 mg/dl (<150); Uric Acid 5.1 mg/dL (2.5-8.0)
[2019-06-15] MEDS: metFORMIN 500 MG TABLET PO SCH (07:42)
[2019-06-15] MEDS: INSULIN LISPRO 1 UNIT/0.01 ML UNIT SQ SCH ×2 (07:42→11:10)
[2019-06-15 08:11] LABS: Band Neutrophils % 4 % (0-10); Hypochromasia FEW (NONE SEEN); Lymphocytes % 25 % (15-49); Monocytes % (Manual) 9 % (1-12); Platelet Estimate NORMAL (NORMAL); Polychromasia FEW (NONE SEEN); RBC Morphology ABNORM (NORMAL); Reactive Lymphocytes 2 % (0-2); Segmented Neutrophils % 60 % (38-78)
[2019-06-15] MEDS: TICAGRELOR 90 MG PO SCH (09:07)
[2019-06-15] MEDS: METOPROLOL SUCCINATE 50 MG TAB.XL.24H PO SCH (09:07)
[2019-06-15] MEDS: FOLIC ACID 1 MG TABLET PO SCH (09:08)
[2019-06-15] MEDS: ASPIRIN 81 MG TAB.CHEW PO SCH (09:08)
[2019-06-15] MEDS: HYDROCHLOROTHIAZIDE 25 MG TABLET PO SCH (09:08)
[2019-06-15] MEDS: CYANOCOBALAMIN (VITAMIN B-12) 500 MCG TABLET PO SCH (09:08)
[2019-06-15] MEDS: MULTIVIT,THER IRON,CA,FA & MIN 1 TABLET PO SCH (09:08)
[2019-06-15] MEDS: ARIPIPRAZOLE 5 MG TABLET PO SCH (09:08)
[2019-06-15] MEDS: ESCITALOPRAM 20 MG TABLET PO SCH (09:09)
[2019-06-15] MEDS: HEPARIN 5,000 UNIT/ML VIAL SQ SCH (10:26)
[2019-06-15] MEDS: ACETAMINOPHEN 325 MG TABLET PO PRN (11:11)
--- NOTE | 2019-06-15 11:52 | Discharge Summary ---
Medical - DS: Prov Patient information: Note initiated : 06/15/19 at 11:50 am Service Date, if different from initiated Date: [] Patient: Harriet English 59 y/o F admitted on 06/13/19 for Weakness, Nausea, Vomiting, Dizziness. Chief Complaint: [] Date of admission: 06/13/19 23:53 Discharge date: 06/15/19 Primary care physician: Pam Champagne Consults: 06/13/19 23:25 Consult to Physician [CONS] Routine Comment: Consulting Provider: Juna Mullen Reason For Exam: Physician to Consult Medical - DS: Meds - Discharge Medications Active and Home Medications: Home Medications Aripiprazole [Abilify] 5 mg PO DAILY 05/24/19 [History Confirmed 06/14/19 Last Taken 06/13/19] Escitalopram [Lexapro] 20 mg PO DAILY 05/24/19 [History Confirmed 06/14/19 Last Taken 06/13/19] Hydrochlorothiazide [Oretic] 25 mg PO DAILY 05/24/19 [History Confirmed 06/14/19 Last Taken 06/13/19] Metoprolol Succinate [Toprol Xl] 100 mg PO DAILY 05/24/19 [History Confirmed 06/14/19 Last Taken 06/13/19] metFORMIN HCL [Metformin HCl] 1,000 mg PO BIDCC 05/24/19 [History Confirmed 06/14/19 Last Taken 06/13/19 08:00] aspirin 81 mg tablet,delayed release 81 mg PO QDAY 06/13/19 [History Confirmed 06/14/19 Last Taken 06/13/19] atorvastatin 40 mg tablet 40 mg PO QHS #30 tab 06/13/19 [History Confirmed 06/14/19 Last Taken 06/12/19] lisinopril 5 mg tablet 5 mg PO QHS #30 tab 06/13/19 [History Confirmed 06/14/19 Last Taken 06/12/19] ondansetron 4 mg disintegrating tablet 4 mg PO Q4-6HP PRN 06/13/19 [History Confirmed 06/14/19 Last Taken Unknown] ticagrelor 90 mg tablet 90 mg PO BID 06/13/19 [History Confirmed 06/14/19 Last Taken 06/13/19 08:00] Medical - DS: Hosp Hospital Course: Discharge diagnosis * Acute kidney injury-likely from volume depletion and recent contrast exposure. Creatinine now at baseline down from 1.8-1. * Nausea vomiting likely secondary to acute gastroenteritis. Clinically resolved with conservative management. Negative CT abdomen. * CAD status post stenting continue ticagrelor/statin/aspirin/JAMES inhibitor/metoprolol * Anxiety disorder continue Lexapro on discharge * Hypertension remains stable on JAMES inhibitor/thiazide/beta-darrel Brief hospital course Ms. English is a 59 year old F with a history of diabetes/coronary artery disease status post stenting 2 weeks ago at [facility]. Patient has been diagnosed with pyelonephritis and was under treatment on antibiotics. She was treated for sepsis and had a 5-day hospitalization at [facility] 2 weeks ago. Post discharge she was continued on antibiotics but has had developed progressive fatigue malaise nausea and never really felt good. Over the last couple of days she has gotten increasingly dizzy lightheaded, loss of appetite but denies fever shaking chills, dysuria, bloody urine or stool. She further denies chest pain/shortness of breath. She subsequently presents to the ER for evaluation. Initial work-up was consistent with hypotension/creatinine 1.8. Her last known creatinine was 1.1 on the day of discharge from [facility] around mid May. CT abdomen essentially unremarkable, with resolution of pyelonephritis findings from p revious CT. EKG sinus rhythm At the time of evaluation patient is alert and oriented. She denies active distress but feels fatigued lethargic. She denies vertigo but endorses some lightheadedness while ambulating. She denies changes in medication except for metoprolol and ticagrelor that was started post coronary stenting. 06/14-patient doing well. No overnight events. Denies lightheadedness but has not attempted getting out of bed. Restart home medications. Blood pressure is stable. Downtrending now 1.6. No overnight diarrhea or abdominal pain or fever chills. No concerns expressed by nursing staff. Start diet. 06/15-patient doing well. No overnight events. Creatinine down to 1. Nausea resolved. Tolerating diet. No further episode of vomiting/diarrhea. Negative abdominal imaging. Patient continuing on home medications. Feels at baseline. Requesting discharge. Discharge diagnosis: . - Time Spent with Patient Total time spent providing and/or coordinating discharge services: Greater than 30 minutes Medical - DS: Exam - Constitutional Vitals: Vital Signs Temp Pulse Resp BP Pulse Ox 06/15/19 08:00 78 14 95 06/15/19 03:43 98.8 F 78 14 139/79 95 06/15/19 00:00 99.1 F H 85 18 119/76 93 06/14/19 19:48 89 16 98 06/14/19 19:46 98 F 89 16 123/65 98 06/14/19 16:00 98.7 F 88 18 128/72 93 06/14/19 12:00 98.5 F 79 18 131/73 95 Intake and Output 06/14/19 06/15/19 06/15/19 21:59 05:59 13:59 Intake Total 2300 300 240 Output Total 2350 1000 600 Balance -50 -700 -360 Intake: IV 1000 Lactated Ringers 1,000 ml @ 100 1000 mls/hr IV .Q10H JEAN Rx#: [id number] Oral 1300 300 240 Output: Urine Catheter Amount 250 Void Amount 2100 1000 600 Other: Meal Dinner Breakfast Percent of Meal Consumed 100% 100% Feeding Ability Independent Independent Urine Appearance Clear Clear Urine Color Straw Bright Yellow Urine Odor Normal Normal Weight 217 lb 8 oz Medical - DS: Data Labs on day of discharge: Labs from last 24 hours 06/15/19 06/15/19 04:05 04:05 WBC 5.7 RBC 3.48 L Hgb 10.5 L Hct 31.0 L MCV 88.9 MCH 30.0 MCHC 33.8 RDW 14.4 Plt Count 250 MPV 8.8 Total Counted 100 Seg Neutrophils % 60 Band Neutrophils % 4 Lymphocytes % 25 Monocytes % (Manual) 9 Reactive Lymphocytes 2 Platelet Estimate Normal RBC Morphology Abnorm A Polychromasia Few A Hypochromasia Few A Sodium 137 Potassium 3.7 Chloride 98 Carbon Dioxide 27 Anion Gap 12.0 BUN 10 Creatinine 1.0 GFR Calculation 62 Glucose 205 H Uric Acid 5.1 Calcium 9.5 Phosphorus 3.4 Magnesium 1.5 L Total Bilirubin 0.6 Direct Bilirubin < 0.2 GGT 20 AST 15 ALT 17 Alkaline Phosphatase 64 Lactate Dehydrogenase 178 Total Protein 7.0 Albumin 3.4 Globulin 3.6 Albumin/Globulin Ratio 0.9 L Triglycerides 193 H Medical - DS: A/P - Patient/Caregiver Discharge Instructions Activity: increase activity as tolerated Diet: Regular Diet Additional Instructions: Return to ER if recurrent symptoms of nausea vomiting. Follow primary care physician 5 to 7 days. Follow-up cardiology after recent coronary stenting as recommended by cardiology - Problem Maintenance (1) ARF (acute renal failure) Status: Acute Qualifiers: Acute renal failure type: unspecified Qualified Code(s): N17.9 - Acute kidney failure, unspecified - Follow up Plan Follow up with: Pam Champagne ARNP [Primary Care Provider] - Disposition: Home, Self-Care Prognosis: Fair Rehab Potential: Fair I certify that the patient requires SNF services: No Overall status at discharge: patient is progressing back to baseline Medical - DS: Qual - VTE Deep Vein Thrombosis/Pulmonary Embolism Present on Admission: No
== END 2019-06-15 12:45 | disposition home or self-care (01) ==
LOC: ED 17:08 → MEDSUR 17:08
PROVIDERS: ADMIT Internal Medicine; ATTEND Internal Medicine

== ENCOUNTER 2024-03-08 01:35 | Inpatient (IN) ==
[2024-03-08] MEDS ORDERED: IOPAMIDOL 100 ML BOTTLE IV ONE (01:36)
[2024-03-08 02:15] LABS: POC INR 1.1 (0.8-1.2); POC Pro Time 12.9 (11.9-14.5)
[2024-03-08 03:18] LABS: Basophils # (Auto) 0.01 K/mcL (0.00-0.30); Basophils % (Auto) 0.1 % (0.0-2.0); Eosinophils # (Auto) 0 K/mcL (0.00-0.70); Eosinophils % (Auto) 0 % (0.0-7.0); Hematocrit 39.3 % (34.1-44.9); Hemoglobin 12.9 g/dL (11.2-15.7); Lymphocytes # (Auto) 0.88 K/mcL (1.50-4.80); Mean Cell Volume 89.9 fL (80.0-100.0); Mean Corpuscular HGB Conc 32.8 g/dL (31.0-36.0); Mean Platelet Volume 11.1 fL (8.8-12.5); Monocytes # (Auto) 0.42 K/mcL (0.10-0.90); Monocytes % (Auto) 4.8 % (1.0-12.0); Neutrophils % (Auto) 84.9 % (38.0-78.0); Platelet Count 219 K/mcL (140-440); RBC 4.37 M/mcL (3.59-5.38); WBC 8.8 K/mcL (4.5-11.0)
[2024-03-08 03:33] LABS: ALT/SGPT 29 U/L (<40); AST/SGOT 20 U/L (<32); Albumin 3.9 gm/dL (3.2-5.2); Alkaline Phosphatase 72 U/L (39-117); Bilirubin,Direct < 0.2 mg/dL (0-0.3); Bilirubin,Total 0.4 mg/dL (0.1-1.0); Globulin 2.4 gm/dL (2.2-3.7)
[2024-03-08 03:41] LABS: Albumin/Globulin Ratio 1.6 (1.0-2.3); Blood Urea Nitrogen 14 mg/dL (8-23); Calcium 9.3 mg/dL (8.6-10.4); Carbon Dioxide 23 mmol/L (22-30); Chloride 100 mmol/L (96-108); Glomerular Filtration Rate 93; Glucose 375 mg/dL (70-105)
[2024-03-08] MEDS: ASPIRIN 325 MG ENTERIC COATED TABLET PO ONE (03:50)
[2024-03-08 05:11] LABS: Appearance,Urine Clear (Clear); Bilirubin,Urine Negative (Negative); Color,Urine Yellow; Culture Indicated,Urine No; Glucose,Urine (UA) >=1000 mg/dL (Negative); Ketones,Urine 15 mg/dL (Negative); Leukocyte Esterase,Urine Negative /uL (Negative); Nitrate,Urine Negative (Negative); Protein,Urine Negative (Negative); Urine Blood Negative ery/mcL (Negative); Urobilinogen,Urine Normal
[2024-03-08] MEDS: 0.9 % SODIUM CHLORIDE 1,000 ML IV SCH (05:41)
[2024-03-08 05:54] LABS: Urine RBC 0 /hpf (0-3); Urine Squamous Epithelial Cell < 1 /hpf (0-4); Urine WBC 0 /hpf (0-4)
[2024-03-08] MEDS: FEXOFENADINE 180 MG TABLET PO SCH (08:28)
[2024-03-08] MEDS: CLOPIDOGREL 300 MG TABLET PO ONE ×2 (08:28→10:30)
[2024-03-08 09:12] LABS: Thyroid Stimulating Hormone 1.48 uIU/mL (0.27-5.01)
[2024-03-08 09:50] LABS: Hemoglobin A1C 11.9 % Hgb (4.0-6.0)
[2024-03-08] MEDS ORDERED: ONDANSETRON 4 MG/2 ML VIAL IV PRN (10:11)
[2024-03-08] MEDS ORDERED: ACETAMINOPHEN 325 MG TABLET PO PRN (10:11)
[2024-03-08] MEDS: INSULIN GLARGINE, HUMAN 1 UNIT/0.01 ML SQ SCH (10:27)
[2024-03-08] MEDS: HEPARIN 5,000 UNIT/ML VIAL SQ SCH (10:31)
[2024-03-08] MEDS: DOCUSATE SODIUM 100 MG CAPSULE PO SCH (10:31)
[2024-03-08] MEDS: ATORVASTATIN 40 MG TABLET PO SCH (10:31)
[2024-03-08] MEDS: 0.9 % SODIUM CHLORIDE 10 ML SYRINGE IV SCH (14:03)
[2024-03-08] MEDS ORDERED: DEXTROSE 31 GM ORAL.SUSP PO PRN (18:25)
[2024-03-08] MEDS ORDERED: DEXTROSE 50% 50 ML VIAL IV PRN (18:25)
[2024-03-08] MEDS: SENNOSIDES 1 TABLET PO SCH (21:40)
[2024-03-08] MEDS ORDERED: ALBUTEROL SULFATE 60 PUFF INHALER INH PRN (21:42)
[2024-03-08] MEDS: INSULIN LISPRO 1 UNIT/0.01 ML UNIT SQ SCH (21:55)
[2024-03-09 06:18] LABS: Basophils # (Auto) 0.02 K/mcL (0.00-0.30); Basophils % (Auto) 0.3 % (0.0-2.0); Eosinophils # (Auto) 0.13 K/mcL (0.00-0.70); Eosinophils % (Auto) 1.7 % (0.0-7.0); Hematocrit 40.8 % (34.1-44.9); Hemoglobin 13.2 g/dL (11.2-15.7); Lymphocytes # (Auto) 2.58 K/mcL (1.50-4.80); Lymphocytes % (Auto) 33.2 % (15.5-49.0); Mean Cell Volume 91.7 fL (80.0-100.0); Mean Corpuscular HGB Conc 32.4 g/dL (31.0-36.0); Mean Platelet Volume 11.3 fL (8.8-12.5); Monocytes % (Auto) 7.7 % (1.0-12.0); Neutrophils % (Auto) 56.7 % (38.0-78.0); Platelet Count 222 K/mcL (140-440); RBC 4.45 M/mcL (3.59-5.38); Red Cell Distribution Width 13.2 % (11.5-14.5); WBC 7.8 K/mcL (4.5-11.0)
[2024-03-09 06:58] LABS: ALT/SGPT 23 U/L (<40); AST/SGOT 20 U/L (<32); Albumin 3.8 gm/dL (3.2-5.2); Albumin/Globulin Ratio 1.6 (1.0-2.3); Alkaline Phosphatase 65 U/L (39-117); Bilirubin,Total 0.3 mg/dL (0.1-1.0); Blood Urea Nitrogen 11 mg/dL (8-23); Carbon Dioxide 25 mmol/L (22-30); Chloride 106 mmol/L (96-108); Globulin 2.4 gm/dL (2.2-3.7); Glomerular Filtration Rate 98; Glucose 175 mg/dL (70-105)
[2024-03-09] MEDS: INSULIN LISPRO 1 UNIT/0.01 ML UNIT SQ SCH (07:51)
[2024-03-09] MEDS: LEVOTHYROXINE 100 MCG TABLET PO SCH (07:55)
[2024-03-09] MEDS: ARIPIPRAZOLE 5 MG TABLET PO SCH (08:48)
[2024-03-09] MEDS: CLOPIDOGREL 75 MG TABLET PO SCH (08:49)
[2024-03-09] MEDS: ASPIRIN 81 MG TAB.CHEW CHEWED SCH (08:49)
[2024-03-09] MEDS: ESCITALOPRAM 20 MG TABLET PO SCH (08:49)
[2024-03-09] MEDS: ASCORBIC ACID 500 MG TABLET PO SCH (08:54)
[2024-03-09] MEDS: FLUTICASONE FUROATE INH SCH (08:56)
[2024-03-09] MEDS: INSULIN GLARGINE, HUMAN 1 UNIT/0.01 ML SQ SCH (09:06)
[2024-03-09] MEDS: ATORVASTATIN 20 MG TABLET PO SCH (09:23)
[2024-03-09] MEDS: IPRATROPIUM/ALBUTEROL 3 ML AMPUL.NEB NEB PRN (12:24)
[2024-03-09] MEDS ORDERED: VITAMIN D3 25 MCG TABLET PO SCH (21:00)
[2024-03-09] MEDS ORDERED: INSULIN GLARGINE, HUMAN 1 UNIT/0.01 ML SQ SCH (21:00)
[2024-03-10] MEDS ORDERED: INSULIN GLARGINE, HUMAN 1 UNIT/0.01 ML SQ SCH (09:00)
== END 2024-03-09 14:22 | disposition home or self-care (01) | DRG 65 ==
LOC: ED 01:35 → MEDSUR 01:35 → OBSVTOIN 21:29 → UNDODISIN 03-09 14:22
PROVIDERS: ADMIT Student in an Organized Health Care Education/Training Program; ATTEND Student in an Organized Health Care Education/Training Program

== ENCOUNTER 2024-03-12 15:55 | Observation (INO) ==
[2024-03-12 16:36] LABS: POC INR 1.1 (0.8-1.2); POC Pro Time 13.6 (11.9-14.5)
[2024-03-12 16:51] LABS: Basophils # (Auto) 0.04 K/mcL (0.00-0.30); Basophils % (Auto) 0.4 % (0.0-2.0); Eosinophils % (Auto) 1.9 % (0.0-7.0); Hematocrit 45.1 % (34.1-44.9); Hemoglobin 14.8 g/dL (11.2-15.7); Lymphocytes # (Auto) 2.25 K/mcL (1.50-4.80); Lymphocytes % (Auto) 21.4 % (15.5-49.0); Mean Cell Volume 90.4 fL (80.0-100.0); Mean Corpuscular HGB Conc 32.8 g/dL (31.0-36.0); Mean Platelet Volume 12.1 fL (8.8-12.5); Monocytes # (Auto) 0.69 K/mcL (0.10-0.90); Monocytes % (Auto) 6.6 % (1.0-12.0); Neutrophils % (Auto) 69.3 % (38.0-78.0); Platelet Count 262 K/mcL (140-440); RBC 4.99 M/mcL (3.59-5.38); Red Cell Distribution Width 13.1 % (11.5-14.5); WBC 10.5 K/mcL (4.5-11.0)
[2024-03-12 17:06] LABS: ALT/SGPT 40 U/L (<40); AST/SGOT 38 U/L (<32); Albumin 4.1 gm/dL (3.2-5.2); Albumin/Globulin Ratio 1.6 (1.0-2.3); Alkaline Phosphatase 77 U/L (39-117); Bilirubin,Total 0.6 mg/dL (0.1-1.0); Blood Urea Nitrogen 15 mg/dL (8-23); Calcium 9.6 mg/dL (8.6-10.4); Carbon Dioxide 24 mmol/L (22-30); Chloride 100 mmol/L (96-108); Globulin 2.6 gm/dL (2.2-3.7); Glomerular Filtration Rate 79; Glucose 153 mg/dL (70-105)
[2024-03-12] MEDS: ASPIRIN 81 MG TAB.CHEW CHEWED ONE (18:02)
[2024-03-12] MEDS: 0.9 % SODIUM CHLORIDE 1,000 ML IV SCH ×2 (18:03→22:56)
[2024-03-12 19:50] LABS: Appearance,Urine Clear (Clear); Bilirubin,Urine Negative (Negative); Color,Urine Yellow; Culture Indicated,Urine No; Glucose,Urine (UA) Negative (Negative); Ketones,Urine Negative (Negative); Leukocyte Esterase,Urine Negative /uL (Negative); Nitrate,Urine Negative (Negative); PH,Urine 6.5 (5.0-9.0); Protein,Urine Negative (Negative); Urine Blood Negative ery/mcL (Negative); Urobilinogen,Urine Normal
[2024-03-12] MEDS ORDERED: DEXTROSE 31 GM ORAL.SUSP PO PRN (22:31)
[2024-03-12] MEDS ORDERED: MAGNESIUM SULFATE 2 GM/50 ML BAG IV PRN (22:31)
[2024-03-12] MEDS ORDERED: POTASSIUM CHLORIDE 40 MEQ in DEXTROSE 5% IN WATER 500 ML IV PRN (22:31)
[2024-03-12] MEDS ORDERED: SENNOSIDES 1 TABLET PO PRN (22:31)
[2024-03-12] MEDS ORDERED: ONDANSETRON 4 MG/2 ML VIAL IV PRN (22:31)
[2024-03-12] MEDS ORDERED: DEXTROSE 50% 50 ML VIAL IV PRN (22:31)
[2024-03-12] MEDS ORDERED: ACETAMINOPHEN 325 MG TABLET PO PRN (22:31)
[2024-03-12] MEDS ORDERED: IPRATROPIUM/ALBUTEROL 3 ML AMPUL.NEB NEB PRN (22:31)
[2024-03-12] MEDS ORDERED: POLYETHYLENE GLYCOL 3350 17 GM PACKET PO PRN (22:31)
[2024-03-12] MEDS ORDERED: POTASSIUM CHLORIDE 20 MEQ TABLET PO PRN ×2 (22:31)
[2024-03-12] MEDS: DOCUSATE SODIUM 100 MG CAPSULE PO SCH (22:43)
[2024-03-12] MEDS: INSULIN LISPRO 1 UNIT/0.01 ML UNIT SQ SCH (22:56)
[2024-03-12] MEDS: 0.9 % SODIUM CHLORIDE 10 ML SYRINGE IV SCH (22:59)
[2024-03-13 06:17] LABS: ALT/SGPT 32 U/L (<40); AST/SGOT 27 U/L (<32); Albumin 3.5 gm/dL (3.2-5.2); Albumin/Globulin Ratio 1.6 (1.0-2.3); Alkaline Phosphatase 66 U/L (39-117); Bilirubin,Direct < 0.2 mg/dL (0-0.3); Bilirubin,Total 0.6 mg/dL (0.1-1.0); Blood Urea Nitrogen 13 mg/dL (8-23); Calcium 8.7 mg/dL (8.6-10.4); Carbon Dioxide 24 mmol/L (22-30); Chloride 106 mmol/L (96-108); Globulin 2.2 gm/dL (2.2-3.7); Glomerular Filtration Rate 98; Glucose 188 mg/dL (70-105); Lactate Dehydrogenase 196 U/L (135-225); Phosphorous 3.5 mg/dL (2.5-4.5); Triglycerides 184 mg/dL (<150); Uric Acid 4.1 mg/dL (2.5-8.0)
[2024-03-13] MEDS: LEVOTHYROXINE 100 MCG TABLET PO SCH (07:37)
[2024-03-13] MEDS: CLOPIDOGREL 75 MG TABLET PO SCH (09:24)
[2024-03-13] MEDS: ASPIRIN 81 MG TAB.CHEW CHEWED SCH (09:24)
[2024-03-13] MEDS: ARIPIPRAZOLE 5 MG TABLET PO SCH (09:25)
[2024-03-13] MEDS: ESCITALOPRAM 20 MG TABLET PO SCH (09:25)
[2024-03-13] MEDS: ENOXAPARIN 40 MG/0.4 ML SYRINGE SQ SCH (09:25)
[2024-03-13] MEDS: INSULIN GLARGINE, HUMAN 1 UNIT/0.01 ML SQ SCH (09:25)
== END 2024-03-13 12:19 | disposition home or self-care (01) ==
LOC: ICU 15:55 → ED 15:55 → ICU 22:27
PROVIDERS: ADMIT Internal Medicine; ATTEND Internal Medicine